=== PATIENT | male | born 1985 ===

== ENCOUNTER 2021-01-12 16:09 | Emergency (ER) | payer BC, SELFPAY ==
[2021-01-12 16:20] VITALS: BP 135/89; PULSE 89; RESP 18; TEMP 36.6; O2SAT 99
--- NOTE | 2021-01-12 16:35 | ED.WOUNDLAC ---
HPI - Wound/Laceration General Chief Complaint: Wound/Laceration Stated Complaint: forehead laceration Time Seen by Provider: 01/12/21 16:35 Source: patient Mode of arrival: ambulatory Limitations: no limitations History of Present Illness HPI narrative: 35-year-old man was previously well comes in today complaining of a laceration on his left forehead. Patient states that he was working on his deck today when the pry bar he was using hit him in the head. He denies loss of consciousness, nausea, vomiting or headache. He does not recall his last tetanus shot. Onset (ago): hour(s) (4) Location: face Place: home Patient tetanus UTD: No Context: accidental Associated symptoms: none Related Data Home Medications Medication Instructions Recorded Confirmed No Home Medications 01/12/21 01/12/21 Allergies Allergy/AdvReac Type Severity Reaction Status Date / Time No Known Allergies Allergy Verified 04/24/20 14:19 Review of Systems Review of Systems: All systems reviewed & are unremarkable except as noted in HPI and below Constitutional: Constitutional: Denies chills and Denies fever(s) Eyes: Eyes: Denies change in vision and Denies photophobia Cardiovascular: Cardiovascular: Denies chest pain and Denies radiating jaw, neck or arm pain Respiratory: Respiratory: Denies cough and Denies dyspnea Gastrointestinal: Gastrointestinal: Denies nausea and Denies vomiting Integumentary/Breasts: Skin/Breast: Reports system reviewed and no additional complaints, except as docu, Denies pruritus, Denies erythema and Denies rash Neurologic: Denies vertigo, Denies dizziness and Denies syncope Hematologic/Lymphatic: Hematologic/Lymphatic: Denies easy bleeding and Denies easy bruising Allergic/Immunologic: Allergic/Immunologic: Denies lip swelling and Denies throat swelling [facility] Past Medical History Medical History Chronic sinusitis Migraines Social History Social History Smoking status: Never smoker Alcohol intake: current Substance use: never 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 Eyes: Conjunctivae: conjunctivae normal Pupils: Equal, round and reactive pupils present EOM: EOMs intact bilaterally Resp: Effort & Inspection: normal respiratory effort and not labored Auscultation: clear to auscultation bilaterally, no rales, no rhonchi and no wheezes Cardio: Rate: regular rate Rhythm: regular rhythm Heart sounds: no murmurs Skin: General skin exam: normal color, no jaundice and no pallor Rashes: no rashes Neuro: General: patient oriented x3, moves all extremities, no focal motor deficits and CN's II-XI intact bilaterally Speech: normal speech Gait exam (Neuro): Normal gait present Extrem: General: normal to inspection and no clubbing, cyanosis or edema Psych: Appearance: grossly normal and well kempt Mental Status: mental status grossly normal Affect: normal affect Attitude: cooperative Thought content: Yes Normal thought content present Course Vital Signs Vital signs: Vital Signs Temperature 36.6 C 01/12/21 16:20 Pulse Rate 89 01/12/21 16:20 Respiratory Rate 18 01/12/21 16:20 Blood Pressure 135/89 01/12/21 16:20 Pulse Oximetry 99 01/12/21 16:20 Temperature 36.6 C 01/12/21 16:20 Pulse Rate 88 01/12/21 17:03 Respiratory Rate 20 01/12/21 17:03 Blood Pressure 130/78 01/12/21 17:03 Pulse Oximetry 100 01/12/21 17:03 Procedu
[2021-01-12] MEDS: TETANUS,DIPHTHERIA,AC PERTUSSIS ADULT 0.5 ML (ADACEL) IM (16:42)
[2021-01-12] MEDS: LIDO 1%/EPINEPHRINE 1:100,000 20 ML VIAL 5 ML INFILTRATE (16:43)
[2021-01-12 17:03] VITALS: BP 130/78; PULSE 88; RESP 20; O2SAT 100
== END 2021-01-12 17:11 | disposition home or self-care (01) ==
PROVIDERS: Emergency Provider Emergency Medicine
DX: S01.81XA Laceration without foreign body of other part of head, initial encounter (principal); W27.8XXA Contact with other nonpowered hand tool, initial encounter
CPT/HCPCS: 12011; 90471; 90715; 99282